=== PATIENT | male | born 1950 | race African-American/Black ===

== ENCOUNTER 2017-06-18 01:11 | Emergency (ER) | payer OTHER, MEDICAID ==
[~2017-06-18] VITALS: Ht 180.3 cm; Wt 88.0 kg
[2017-06-18 01:14] VITALS: BP 187/93; PULSE 87; RESP 16; TEMP 97.8; O2SAT 96
[2017-06-18] MEDS ORDERED: TAMS0.4C4 PO (01:30)
[2017-06-18] MEDS ORDERED: AMOX875T2 PO (01:31)
[2017-06-18] MEDS ORDERED: diphenhydrAMINE HCL 50 MG CAP PO ONE (01:45)
[2017-06-18] MEDS ORDERED: predniSONE 20 MG TAB PO ONE (01:45)
[2017-06-18] MEDS ORDERED: FAMOTIDINE 20 MG TAB PO ONE (01:45)
--- NOTE | 2017-06-18 01:46 | PD ---
HPI Chief Complaint: Allergic/Adverse Reaction Time Seen by Provider: 01:25 Travel History International Travel<30 days: No Contact w/Intl Traveler<30days: No Traveled to known affect area: No History of Present Illness HPI Patient is a 67 year old male who presents to ER with c/o of allergic reaction to augmentin. Patient has been taking Augmentin for the past few days as he had a boil on his back. Reports that he noticed that his hands are itchy at this time and has been itchy since this morning. Patient with no hives, no respiratory complaints. Patient denies any airway compromise PFSH Past Medical History Medical History: Denies Significant Hx Past Surgical History Surgical History: No Previous Surgery Social History Alcohol Use: No Tobacco Use: No Substance Use: No Allergies-Medications (Allergen,Severity, Reaction): Coded Allergies: No Known Allergies (Unverified , 06/18/17) Reported Meds & Prescriptions Reported Meds & Active Scripts Active Reported Amoxicillin-Clavulanate 875-125 mg Tab 875 Mg PO BID not for use in CrCl <30 mL/minute Tamsulosin (Tamsulosin HCl) 0.4 Mg Cap 0.4 Mg PO HS Review of Systems General / Constitutional: No: Fever Eyes: No: Visual changes HENT: No: Headaches Cardiovascular: No: Chest Pain or Discomfort Respiratory: No: Shortness of Breath Gastrointestinal: No: Abdominal Pain Genitourinary: No: Dysuria Musculoskeletal: No: Pain Skin: Positive Itching, No Rash Neurologic: No: Weakness Psychiatric: No: Depression Endocrine: No: Polydipsia Hematologic/Lymphatic: No: Easy Bruising Physical Exam Narrative GENERAL: No acute distress, nontoxic SKIN: Focused skin assessment warm/dry. HEAD: Atraumatic. Normocephalic. EYES: Pupils equal and round. No scleral icterus. No injection or drainage. ENT: No nasal bleeding or discharge. Mucous membranes pink and moist. Airways are open and patent NECK: Trachea midline. No JVD. CARDIOVASCULAR: Regular rate and rhythm. No murmur appreciated. RESPIRATORY: No accessory muscle use. Clear to auscultation. Breath sounds equal bilaterally. GASTROINTESTINAL: Abdomen soft, non-tender, nondistended. Hepatic and splenic margins not palpable. MUSCULOSKELETAL: No obvious deformities. No clubbing. No cyanosis. No edema. Patient with mild erythema to hands bilaterally NEUROLOGICAL: Awake and alert. No obvious cranial nerve deficits. Motor grossly within normal limits. Normal speech. PSYCHIATRIC: Appropriate mood and affect; insight and judgment normal. Data Data Last Documented VS Vital Signs Date Time Temp Pulse Resp B/P (MAP) Pulse Ox O2 Delivery O2 Flow Rate FiO2 06/18/17 01:32 96 Room Air 06/18/17 01:14 97.8 87 16 187/93 (124) Orders Orders Prednisone (Deltasone) (06/18/17 01:45) Diphenhydramine (Benadryl) (06/18/17 01:45) Famotidine (Pepcid) (06/18/17 01:45) [facility] Medical Decision Making Medical Screen Exam Complete: Yes Emergency Medical Condition: Yes Interpretation(s) Vital Signs Date Time Temp Pulse Resp B/P (MAP) Pulse Ox O2 Delivery O2 Flow Rate FiO2 06/18/17 01:32 96 Room Air 06/18/17 01:14 97.8 87 16 187/93 (124) 96 Room Air Differential Diagnosis Differential includes allergic reaction Narrative Course Patient with most likely allergic reaction to Augmentin. Discussed need for him to stop taking his Augmentin. Will administer steroids, Benadryl and Pepcid at this time. Patient with no airway involvement. Patient re-evaluated, patient feeling much better. Plan for patient to follow up with his pcp and he will return to ER as needed Diagnosis Primary Impression: Allergic reaction caused by a drug Qualified Codes: T78.40XA - Allergy, unspecified, initial encounter Patient Instructions: General Instructions Additional Instructions: Please stop taking Augmentin Please follow-up with your primary care doctor Return to the emergency room if symptoms worsen or progress Return to the ER as needed Med/Other Pt SpecificInfo: Prescription(s) given Scripts Diphenhydramine (Diphenhydramine) 25 Mg Cap 25 MG PO Q6H Y for ALLERGIES for 5 Days, #20 CAP 0 Refills Prov: Dania Collazo DO 06/18/17 Prednisone (Prednisone) 20 Mg Tab 20 MG PO BID for 5 Days, #10 TAB 0 Refills Prov: Dania Collazo DO 06/18/17 Disposition: 01 DISCHARGE HOME Condition: Stable Dania Collazo DO Jun 18, 2017 01:46
[2017-06-18] MEDS ORDERED: DIPH25CA PO (02:20)
[2017-06-18] MEDS ORDERED: PRED20 PO (02:20)
[2017-06-18 02:47] VITALS: BP 153/77
== END 2017-06-18 02:55 | disposition home or self-care (01) ==
LOC: NEPC 01:11
DX: T78.40XA Allergy, unspecified, initial encounter (principal)
CPT/HCPCS: 99284; J7512; Q0163